=== PATIENT | male | born 1945 | race Caucasian/White ===

== ENCOUNTER → 2016-12-11 | Outpatient (CLI) | payer MEDICARE ==
[2015-09-26 09:29] VITALS: BP 128/71
[~2016-12-11] MED LIST: ASPI325T4 PO; ATOR40TA59 PO; CA C1TAB28 PO; CYAN100072 PO; FLUT1DIS3 IH; GABA-586 PO; IOHEXOL 300 MG/ML 50 ML VIAL. IV ONE; LEVO125T5 PO; LISI10TA2 PO; MELO-150 PO; METF500T4 PO; METF500T9 PO; OLME1TAB5 PO; OMEG500C PO; OSEL75CA PO; PANT40GR PO; TAMS0.4C2 PO
[2016-12-11 12:56] LABS: CREATININE 1.2 mg/dL (0.7-1.3); GFR 59.7
--- NOTE | 2016-12-11 13:38 | RAD ---
CT of the head with and without contrast, 12/11/2016: History: Paresthesias, altered mental status Multidetector CT imaging was performed prior to and following an IV bolus injection of iodinated contrast material. The ventricles are within normal limits in size. There is no shift of the midline structures. There is no evidence of acute intracranial hemorrhage or mass effect. The postcontrast scans show no areas of abnormal enhancement. There is a tiny area of decreased density in the right parietal deep white matter compatible with an old infarct. This was also evident on an MR study from 11/30/2014. IMPRESSION: 1. 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 2. No acute intracranial abnormality is detected. PQRS Compliance Statement: One or more of the following individualized dose reduction techniques were utilized for this examination: 1. Automated exposure control 2. Adjustment of the mA and/or kV according to patient size 3. Use of iterative reconstruction technique
== END | disposition home or self-care (01) ==
LOC: CT 12:28
PROVIDERS: ATTEND Family Medicine
DX: R41.82 Altered mental status, unspecified (principal); R20.2 Paresthesia of skin
CPT/HCPCS: 36415; 70470; 82565; Q9967

== ENCOUNTER 2016-12-16 17:10 | Emergency (ER) | payer MEDICARE ==
[~2016-12-16] VITALS: Ht 165.1 cm; Wt 89.4 kg
[~2016-12-16 17:10] MED LIST changes: -ASPI325T4 PO; +ASPI325T8 PO; -IOHEXOL 300 MG/ML 50 ML VIAL. IV ONE; -MELO-150 PO; +MELO15TA23 PO; +OLME1TAB25 PO; -OLME1TAB5 PO
--- NOTE | 2016-12-16 17:50 | EKG ---
[address] [address] Test Date: 2016-12-16 Test Time: 17:48:11 Pat Name: BENNY HALE Department: Room: Gender: M Staff Internist Office Based Only: : 1945 Requested By: ARTEMIO BAILEY Order Number: [id number] Reading MD: Tucker Galindo Measurements Intervals [place] Rate: 64 P: 0 DC: 160 QRS: -3 QRSD: 92 T: -6 QT: 456 QTc: 470 Interpretive Statements SINUS RHYTHM LOW VOLTAGE NON-SPECIFIC ST/T CHANGES Electronically Signed On 12-21-2016 9:26:37 CDT by Tucker Galindo
[2016-12-16 17:59] LABS: BASO % 0 % (0-3); EOS # 0.2 x10^3/uL (0.0-0.7); EOS % 2 % (0-3); HEMATOCRIT 42.6 % (39.0-53.0); HEMOGLOBIN 14.7 g/dL (13.0-17.5); LYMPH # 1.8 x10^3/uL (1.0-4.8); LYMPH % 23 % (24-48); MEAN CORPUSCULAR HEMOGLOBIN 32 pg (25-35); MEAN CORPUSCULAR HGB CONC 35 g/dL (31-37); MEAN CORPUSCULAR VOLUME 93 fL (79-100); MONO # 0.7 x10^3/uL (0.0-1.1); MONO % 9 % (0-9); NEUT # 5.4 x10^3uL (1.8-7.7); NEUT % 66 % (31-73); PLATELET COUNT 179 x10^3/uL (140-400); RED BLOOD COUNT 4.56 x10^6/uL (4.30-5.70); RED CELL DISTRIBUTION WIDTH 12.5 % (11.5-14.5); WHITE BLOOD COUNT 8.1 x10^3/uL (4.0-11.0)
--- NOTE | 2016-12-16 18:33 | ED.ADGEN ---
Past History Past Medical History: CVA, Diabetes, Hypertension, Other Past Surgical History: Knee Replacement, Other Smoking: Cigarettes Alcohol Use: None Drug Use: None Adult General Chief Complaint Chief Complaint Fatigue HPI HPI Patient is a 71 year old male who presents with 2 weeks of fatigue with any type of exertion. He denies any fevers chills nausea or vomiting. He states he just gets extremely tired with minimal activities this is started about 2 weeks ago. He denies any chest pain shortness of breath, and nausea vomiting. He states he's been eating and drinking normally. He was seen by his primary care physician today who wanted him evaluated for possible cardiac reasons for his complaint. He does smoke he smokes a pack per days and that since the age of 16. Review of Systems Review of Systems Constitutional: Denies fever or chills [] Eyes: Denies change in visual acuity, redness, or eye pain [] HENT: Denies nasal congestion or sore throat [] Respiratory: Denies cough or shortness of breath [] Cardiovascular: No additional information not addressed in HPI [] GI: Denies abdominal pain, nausea, vomiting, bloody stools or diarrhea [] : Denies dysuria or hematuria [] Musculoskeletal: Denies back pain or joint pain [] Integument: Denies rash or skin lesions [] Neurologic: Denies headache, focal weakness or sensory changes [] Endocrine: Denies polyuria or polydipsia [] Allergies Allergies Allergies Coded Allergies Type Severity Reaction Last Updated Verified Influenza Virus Vaccines Allergy Severe Swelling 09/25/15 Yes Physical Exam Physical Exam Constitutional: Well developed, well nourished, no acute distress, non-toxic appearance. [] HENT: Normocephalic, atraumatic, bilateral external ears normal, oropharynx moist, no oral exudates, nose normal. [] Eyes: PERRLA, EOMI, conjunctiva normal, no discharge. [] Neck: Normal range of motion, no tenderness, supple, no stridor. [] Cardiovascular:Heart rate regular rhythm, no murmur [] Lungs & Thorax: Bilateral breath sounds clear to auscultation [] Abdomen: Bowel sounds normal, soft, no tenderness, no masses, no pulsatile masses. [] Skin: Warm, dry, no erythema, no rash. [] Back: No tenderness, no CVA tenderness. [] Extremities: No tenderness, no cyanosis, no clubbing, ROM intact, no edema. [] Neurologic: Alert and oriented X 3, normal motor function, normal sensory function, no focal deficits noted. [] Psychologic: Affect normal, judgement normal, mood normal. [] Current Patient Data Vital Signs Vital Signs Date Time Temp Pulse Resp B/P (MAP) Pulse Ox O2 Delivery O2 Flow Rate FiO2 12/16/16 18:44 55 18 129/62 (84) 93 Room Air 12/16/16 17:10 97.7 Lab Results Laboratory Tests Test 12/16/16 17:08 12/16/16 17:40 12/16/16 18:49 Urine Collection Type Unknown Urine Color Yellow Urine Clarity Clear Urine pH 5.0 Urine Specific [place] 1.020 Urine Protein Neg (NEG-TRACE) Urine Glucose (UA) Neg mg/dL (NEG) Urine Ketones (Stick) Neg mg/dL (NEG) Urine Blood Neg (NEG) Urine Nitrite Neg (NEG) Urine Bilirubin Neg (NEG) Urine Urobilinogen Dipstick 0.2 mg/dL (0.2 mg/dL) Urine Leukocyte Esterase Trace (NEG) Urine RBC 1-2 /HPF (0-2) Urine WBC 5-10 /HPF (0-4) Urine Squamous Epithelial Cells None /LPF Urine Bacteria 0 /HPF (0-FEW) White Blood Count 8.1 x10^3/uL (4.0-11.0) Red Blood Count 4.56 x10^6/uL (4.30-5.70) Hemoglobin 14.7 g/dL (13.0-17.5) Hematocrit 42.6 % (39.0-53.0) Mean Corpuscular Volume 93 fL (79-100) Mean Corpuscular Hemoglobin 32 pg (25-35) Mean Corpuscular Hemoglobin Concent 35 g/dL (31-37) Red Cell Distribution Width 12.5 % (11.5-14.5) Platelet Count 179 x10^3/uL (140-400) Neutrophils (%) (Auto) 66 % (31-73) Lymphocytes (%) (Auto) 23 % (24-48) L Monocytes (%) (Auto) 9 % (0-9) Eosinophils (%) (Auto) 2 % (0-3) Basophils (%) (Auto) 0 % (0-3) Neutrophils # (Auto) 5.4 x10^3uL (1.8-7.7) Lymphocytes # (Auto) 1.8 x10^3/uL (1.0-4.8) Monocytes # (Auto) 0.7 x10^3/uL (0.0-1.1) Eosinophils # (Auto) 0.2 x10^3/uL (0.0-0.7) Basophils # (Auto) 0.0 x10^3/uL (0.0-0.2) Prothrombin Time 10.1 SEC (9.4-11.4) Prothrombin Time INR 1.0 (0.9-1.1) PTT 25 SEC (23-33) Sodium Level 141 mmol/L (136-145) Potassium Level 4.1 mmol/L (3.5-5.1) Chloride Level 106 mmol/L (98-107) Carbon Dioxide Level 25 mmol/L (21-32) Anion Gap 10 (6-14) Blood Urea Nitrogen 41 mg/dL (8-26) H Creatinine 1.5 mg/dL (0.7-1.3) H Estimated GFR (Cockcroft-Gault) 46.1 BUN/Creatinine Ratio 27 (6-20) H Glucose Level 97 mg/dL (70-99) Lactic Acid Level 1.2 mmol/L (0.4-2.0) Calcium Level 9.1 mg/dL (8.5-10.1) Magnesium Level 2.1 mg/dL (1.8-2.4) Total Bilirubin 0.4 mg/dL (0.2-1.0) Aspartate Amino Transferase (AST) 21 U/L (15-37) Alanine Aminotransferase (ALT) 26 U/L (16-63) Alkaline Phosphatase 82 U/L (46-116) Creatine Kinase 132 U/L (39-308) Creatine Kinase MB (Mass) 1.2 ng/mL (0.0-3.6) Creatine Kinase MB Relative Index 0.9 % (0-4) Troponin I Quantitative < 0.017 ng/mL (0-0.055) DU-Pvk-B-Type Natriuretic Peptide 34 pg/mL (0-124) Total Protein 6.9 g/dL (6.4-8.2) Albumin 3.8 g/dL (3.4-5.0) Albumin/Globulin Ratio 1.2 (1.0-1.7) Lipase 85 U/L (73-393) EKG EKG EKG shows normal sinus with a rate of 64 bpm, left axis deviation, T-wave inversions noted in leads 3, aVF, V1 through V3, QTC 470 ms, as interpreted by me. Radiology/Procedures Radiology/Procedures Two-view chest x-ray shows a small area of consolidation the right upper lobe, no other focal consolidations, bony abnormalities or pneumothorax appreciated. As interpreted by me. Course & Med Decision Making Course & Med Decision Making Pertinent Labs and Imaging studies reviewed. (See chart for details) Labs show any acute abnormalities. His troponin is normal. He's had these symptoms for several weeks. He does have an area on his chest x-ray that is suspicious for possible early pneumonia. We'll discharge with a Z-Shilo. Return precautions given the patient's agreeable to the plan and being discharged in stable condition this time. He was offered admission however he is refusing to stay. Final Impression Final Impression Weakness Problems: Dragon Disclaimer Dragon Disclaimer This electronic medical record was generated, in whole or in part, using a voice recognition dictation system. SANDIP WILEY MD December 16, 2016 18:33
[2016-12-16 19:58] LABS: ALBUMIN 3.8 g/dL (3.4-5.0); ALBUMIN/GLOBULIN RATIO 1.2 (1.0-1.7); CALCIUM 9.1 mg/dL (8.5-10.1); CREATININE 1.5 mg/dL (0.7-1.3); GFR 46.1; MAGNESIUM 2.1 mg/dL (1.8-2.4); POTASSIUM 4.1 mmol/L (3.5-5.1); TOTAL BILIRUBIN 0.4 mg/dL (0.2-1.0); TOTAL PROTEIN 6.9 g/dL (6.4-8.2)
[2016-12-16 20:17] LABS: BILIRUBIN,URINE NEG (NEG); CLARITY,URINE CLEAR; COLOR,URINE YELLOW; GLUCOSE,URINE NEG (NEG)
[2016-12-16 20:18] LABS: NITRITE,URINE NEG (NEG); UROBILINOGEN,URINE 0.2 mg/dL (0.2 mg/dL)
[2016-12-16 20:19] LABS: BACTERIA,URINE 0 /HPF (0-FEW)
[2016-12-16] MEDS ORDERED: AZIT250T6 PO (21:06)
[2016-12-16 21:11] VITALS: BP 130/83
--- NOTE | 2016-12-17 09:40 | RAD ---
Exam performed: One view chest. Indication: Weakness and dizziness since Wednesday Date of Service: 12/16/2016 7:38 PM Comparison: 09/24/15. Single AP upright portable view chest findings: Cardiomediastinal silhouette is within limits of normal. Atheromatous calcification of the aortic knob. No acute infiltrates, effusion or pneumothorax is detected. There is a linear scarring or chronic atelectasis in the left lung base. The bony structures are normal. Impression: No acute cardiopulmonary process is detected.
== END 2016-12-16 21:20 | disposition home or self-care (01) ==
LOC: ER 17:10
DX: R53.1 Weakness (principal); E11.9 Type 2 diabetes mellitus without complications; I10 Essential (primary) hypertension; F17.210 Nicotine dependence, cigarettes, uncomplicated; Z86.73 Personal history of transient ischemic attack (TIA), and cerebral infarction without residual deficits; Z88.7 Allergy status to serum and vaccine
CPT/HCPCS: 36415; 71020; 80053; 81001; 82553; 83605; 83690; 83735; 83880; 84484; 85027; 85610; 85730; 87086; 93005; 99285-25

== ENCOUNTER → 2019-04-11 | Outpatient (CLI) | payer BC, MEDICARE ==
[~2019-04-11] MED LIST changes: +AZIT250T6 PO; +METF500T16 PO; -METF500T4 PO
--- NOTE | 2019-04-11 16:26 | RAD ---
Examination: Ultrasound abdominal aorta HISTORY: History of abdominal aortic aneurysm. COMPARISON: None available. Findings: The proximal aorta measures 2.7 x 2.6 cm, mid aorta measures 1.8 x 2.1 cm, distal aorta measures 3.7 x 4.2 cm. Atherosclerotic plaque identified in the mid and distal aorta IMPRESSION: Distal abdominal aortic aneurysm measuring 3.7 cm. Electronically signed by: Michael Crouch MD (04/11/2019 4:23 PM) [id number]
== END | disposition home or self-care (01) ==
LOC: US 08:16
PROVIDERS: ATTEND Internal Medicine
DX: I71.4 Abdominal aortic aneurysm, without rupture (principal); I70.0 Atherosclerosis of aorta
CPT/HCPCS: 76770